=== PATIENT | female | born 1975 | race Caucasian/White ===

== ENCOUNTER 2017-06-08 17:58 | Emergency (ER) | payer OTHER ==
[2017-06-08 18:05] VITALS: BP 100/70; PULSE 99; TEMP 98.2; BMI 28.0
[2017-06-08 21:19] LABS: URINE APPEARANCE SLCLOUDY; URINE BILIRUBIN NEGATIVE (NEGATIVE); URINE BLOOD NEGATIVE (NEGATIVE); URINE COLOR YELLOW; URINE GLUCOSE (UA) NEGATIVE (NEGATIVE); URINE KETONE NEGATIVE (NEGATIVE); URINE LEUK ESTERASE NEGATIVE (NEGATIVE); URINE NITRITE NEGATIVE (NEGATIVE); URINE PROTEIN NEGATIVE (NEGATIVE); URINE UROBILINOGEN NEGATIVE mg/dL (0.2-1.0)
--- NOTE | 2017-06-08 21:48 | PDOC ---
History of Present Illness - General Chief Complaint: Pain Stated Complaint: PREG STOMACH PAIN/17 WKS Time Seen by Provider: 06/08/17 20:47 History Source: Patient Exam Limitations: No Limitations - History of Present Illness Initial Comments: 06/08/17 21:43 41yo Female patient 17 weeks presents to ED c/o right pelvic pain that began this morning. Patient stats symptoms have been on and off all day, she went to work and came to ED for evaluation. Patient denies n/v/d, fever, dysuria , hematuria, back pain, vaginal bleeding, or any other complaints at this time. Timing/Duration: constant Severity: mild Modifying Factors: worse with: cold therapy, eating, immobilization, medication , movement, rest, other Associated Symptoms: denies: denies symptoms, chest pain, cough, diaphoresis, fever/chills, headaches, loss of appetite, malaise, nausea/vomiting, rash, seizure, shortness of breath, syncope, weakness, other Aspirin Received prior to arrival: No: no aspirin today, unknown, 81 mg x 1, 81 mg x 2, 81 mg x 3, 81 mg x 4, 325 mg x 1, provided at home, provided by EMS, provided by ED Past History - Travel Traveled outside of the country in the last 30 days: No Close contact w/someone who was outside of country & ill: No - Past Medical History Allergies/Adverse Reactions: Allergies Allergy/AdvReac Type Severity Reaction Status Date / Time No Known Allergies Allergy Verified 06/08/17 18:01 Home Medications: Ambulatory Orders Vitamins (Sjr) - 1 bot PO DAILY 12/23/14 Asthma: No Cancer: No Cardiac Disorders: No Diabetes: No HTN: No Seizures: No Thyroid Disease: No Other medical history: NONE - Surgical History Appendectomy: Yes - Psycho/Social/Smoking Cessation Hx Anxiety: No Suicidal Ideation: No Smoking History: Never smoked Have you smoked in the past 12 months: No Information on smoking cessation initiated: No Hx Alcohol Use: No Drug/Substance Use Hx: No Substance Use Type: None Hx Substance Use Treatment: No Review of Systems - Review of Systems Able to Perform ROS?: Yes Is the patient limited [place] Citizen proficient: No Constitutional: No: Chills, Fever Respiratory: No: Cough Cardiac (ROS): No: Chest Pain ABD/GI: Yes: Abdominal Distended (17 weeks ), Other (Right pelvic pain) . No: Constipated, Diarrhea, Nausea, Poor Appetite, Poor Fluid Intake, Rectal Bleeding, Vomiting, Abdominal cramping, Tarry Stools : No: Burning, Dysuria, Discharge, Frequency, Flank Pain, Hematuria, Pain, Urgency Musculoskeletal: No: Back Pain Integumentary: No: Bruising, Erythema, Rash, Sweating All Other Systems: Reviewed and Negative *Physical Exam - Vital Signs Last Vital Signs Temp Pulse Resp BP Pulse Ox 98.2 F 99 H 18 100/70 100 06/08/17 18:02 06/08/17 18:02 06/08/17 18:02 06/08/17 18:02 06/08/17 18:02 - Physical Exam General Appearance: Yes: Nourished, Appropriately Dressed. No: Apparent Distress, Mild Distress, Moderate Distress, Severe Distress Respiratory/Chest: positive: Lungs Clear, Normal Breath Sounds. negative: Chest Tender, Respiratory Distress, Accessory Muscle Use, Labored Respiration, Rapid RR, Wheezing Cardiovascular: positive: Regular Rhythm, Regular Rate Gastrointestinal/Abdominal: positive: Normal Bowel Sounds, Tender, Soft, Distended, Tenderness (Right groin region). negative: Guarding, Rebound Musculoskeletal: positive: Normal Inspection. negative: CVA Tenderness, Decreased Range of Motion, Vertebral Tenderness Extremity: positive: Normal Capillary Refill, Normal Inspection, Normal Range of Motion. negative: Pedal Edema, Swelling, Calf Tenderness, Erythema, Inflammation Integumentary: positive: Normal Color, Warm Neurologic: positive: weather analyst II-XII NML intact, Fully Oriented, Alert, Normal Mood/ Affect, Normal Response, Motor Strength 5/5 ED Treatment Course - ADDITIONAL ORDERS Additional order review: Laboratory Results 06/08/17 21:10 Urine Color Yellow Urine Appearance Slcloudy Urine pH 5.0 Urine Protein Negative Urine Glucose (UA) Negative Urine Ketones Negative Urine Blood Negative Urine Nitrite Negative Urine Bilirubin Negative Urine Urobilinogen Negative Ur Leukocyte Esterase Negative - RADIOLOGY Radiology Studies Ordered: Category Date Time Status LIMITED US [US] Stat Ultrasound 06/08/17 20:58 Taken *DC/Admit/Observation/Transfer Diagnosis at time of Disposition: Abdominal pain during in second trimester - Discharge Dispostion Disposition: HOME Condition at time of disposition: Stable Admit: No - Patient Instructions Printed Discharge Instructions: DI for Abdominal Pain -- Early Additional Instructions: FOLLOW UP WITH YOUR OPTIMIZATION CONSULTANT THIS WEEK. CALL TO SCHEDULE APPOINTMENT TO BE SEEN FOR FURTHER EVALUATION. RETURN IF YOU EXPERIENCE VAGINAL BLEEDING, SEVERE BACK PAIN, VOMITING, FEVER, OR ANY OTHER COMPLAINTS AT THIS TIME. Print Language: GREEK
== END 2017-06-08 23:08 | disposition home or self-care (01) ==
LOC: JER 17:58
DX: O26.891 Other specified pregnancy related conditions, first trimester (principal); R10.31 Right lower quadrant pain; Z3A.17 17 weeks gestation of pregnancy
CPT/HCPCS: 76815-TC; 81003; 87086; 99281-25

== ENCOUNTER 2017-11-11 19:05 | Inpatient (IN) | payer OTHER ==
[2017-11-11 20:06] VITALS: BMI 31.4
[2017-11-11] MEDS ORDERED: TUBERCULIN PPD 5 TU/0.1ML SYRINGE (IN PATIENT USE ONLY) ID ONE (20:15)
--- NOTE | 2017-11-11 20:21 | HP ---
Past Medical History - Admission History of Present Illness: 42 yo @ 39 9/7 wks by first trimester ultrasound, EDC 11/18/2017 complicated by: 1. AMA - reassuring NST Declined all genetic testing 2. Failed Essure Patient reports contractions began at 4 PM. She denies leakage of fluid or vaginal bleeding. She reports movement. History Source: Patient Limitations to Obtaining History: No Limitations - Past Medical History Cardiovascular: No: HTN Pulmonary: No: Asthma Gastrointestinal: No: GERD ...: 3 ...Para: 2 ...Term: 2 ...: 0 ...Spon : 0 ...Induced : 0 ...Multiple Gestation: 0 ...LMP: 02/11/17 ... Weeks Gestation by Dates: 39.0 ...EDC by Dates: 11/18/17 ...EDC by Sono: 11/12/17 Heme/Onc: No: Anemia - Past Surgical History Past Surgical History: Yes: Appendectomy Hx Myomectomy: No Hx Transabdominal Cerclage: No - Smoking History Smoking history: Never smoked Have you smoked in the past 12 months: No - Alcohol/Substance Use Hx Alcohol Use: No History of Substance Use: reports: None - Social History Usual Living Arrangement: Yes: With Spouse History of Recent Travel: No Home Medications - Allergies Allergies/Adverse Reactions: Allergies Allergy/AdvReac Type Severity Reaction Status Date / Time No Known Allergies Allergy Verified 10/28/17 16:59 - Home Medications Home Medications: Ambulatory Orders Vitamins (Sjr) - 1 bot PO DAILY 12/23/14 Family Disease History - Family Disease History Family History: Denies Review of Systems - Review of Systems Constitutional: reports: No Symptoms HENT: reports: No Symptoms Neck: reports: No Symptoms Cardiovascular: reports: No Symptoms Respiratory: reports: No Symptoms Genitourinary: reports: No Symptoms Musculoskeletal: reports: No Symptoms Integumentary: reports: No Symptoms Neurological: reports: No Symptoms Endocrine: reports: No Symptoms Hematology/Lymphatic: reports: No Symptoms Physical Exam - Maternity Vital Signs: Vital Signs Temperature 98.5 F 11/11/17 19:25 Pulse Rate 96 H 11/11/17 19:25 Respiratory Rate 20 11/11/17 19:25 Blood Pressure 123/77 11/11/17 19:25 O2 Sat by Pulse Oximetry (%) Constitutional: Yes: Well Nourished, No Distress, Calm Neck: Yes: Supple Cardiovascular: Yes: Regular Rate and Rhythm Lungs: Clear to auscultation - Abdominal Exam/OB Fundal Height: 40 Number of Fetuses: Single Contractions: Yes Regularity: Regular Intensity: Mod/Strong Monitor Mode: External Heart Rate (range): 150 Category: I Accelerations: Non-Uniform Decelerations: None - Vaginal Exam/OB Vaginal Bleediing: No Dilatation (cm): 8 Amniotic Membrane Status: Intact - Physical Exam Extremities: Yes: WNL Integumentary: Yes: WNL ...Motor Strength: WNL Psychiatric: Yes: Alert, Oriented - Labs Lab Results: PNL: O positive; antibody negative; RPR NR; HBS Ag negative; Rubella Immune, GBS negative; HIV negative Hemorrhage Risk Assessment - Risk Factors Medium Risk Factors: Yes: None High Risk Factors: Yes: None Risk Score: 1 Risk Level: Medium Risk Assessment/Plan 42 yo @ 39 6/7 wks, active labor 1. Admit to L&D 2. Consents reviewed and signed 3. Routine labs collected and sent 4. GBS negative 5. Declines offer for pain control 6. Will proceed with expectant management
[2017-11-11 20:34] LABS: BASO % 0.6 % (0-2.0); EOS % 0.4 % (0-4.5); HEMATOCRIT 36.8 % (32.4-45.2); HEMOGLOBIN 12.5 GM/dL (10.7-15.3); LYMPH % 17.3 % (8-40); MCH 30.3 pg (25.7-33.7); MCHC 33.9 g/dl (32.0-36.0); MEAN CELL VOLUME 89.4 fl (80-96); MEAN PLT VOLUME 9.2 fl (7.5-11.1); NEUT % 74.7 % (42.8-82.8); PLATELET COUNT 244 K/MM3 (134-434); RBC 4.12 M/mm3 (3.60-5.2); RDW 14.6 % (11.6-15.6); WHITE BLOOD COUNT 8.4 K/mm3 (4.0-10.0)
[2017-11-11 21:02] LABS: ANION GAP 11 (8-16); BLOOD UREA NITROGEN 8 mg/dL (7-18); CALCIUM 7.9 mg/dL (8.5-10.1); CHLORIDE 105 mmol/L (98-107); CO2 23 mmol/L (21-32); CREATININE 0.5 mg/dL (0.55-1.02); GLUCOSE,RANDOM 141 mg/dL (74-106); POTASSIUM 3.7 mmol/L (3.5-5.1); SODIUM 139 mmol/L (136-145)
[2017-11-11 21:08] LABS: INR 0.93 (0.82-1.09); PROTHROMBIN TIME (PATIENT) 10.5 SEC (9.98-11.88)
[2017-11-11 21:11] LABS: ACTIVATED PTT 25.8 SECONDS (26.9-34.4)
[2017-11-11] MEDS ORDERED: DEXTROSE 5%-LACTATED RINGERS 500 ML IV ONE (21:14)
[2017-11-11] MEDS ORDERED: OXYTOCIN 15 UNITS/ LR 250 ML 250 ML IVPB SCH (22:00)
[2017-11-11] MEDS ORDERED: OXYTOCIN 30 UNITS in 0.9% NS 30 UNIT/500 ML INFUS.BAG IVPB ONE (22:01)
[2017-11-11] MEDS ORDERED: DEXTROSE 5%-LACTATED RINGERS 1,000 ML IV SCH (22:15)
[2017-11-11] MEDS ORDERED: OXYTOCIN 30 UNITS in 0.9% NS 30 UNIT/500 ML INFUS.BAG IVPB SCH (22:15)
[2017-11-11] MEDS ORDERED: OXYTOCIN 20 UNITS in 0.9% NS 20 UNIT/1,000 ML INFUS.BAG IV ONE (23:00)
--- NOTE | 2017-11-11 23:37 | PN ---
Delivery - Delivery Vaginal Delivery: No Problems Type of Anesthesia: None Episiotomy/Laceration: None EBL (cc): 300 Delivery, Single - Stages of Labor Date 1st Stage Initiatied: 11/11/17 Time 1st Stage Initiated: 16:00 Date 2nd Stage Initiated: 11/11/17 Time 2nd Stage Initiated: 23:00 Date of Delivery: 11/11/17 Time of Delivery: 23:20 Date Placenta Delivered: 11/11/17 Time Placenta Delivered: 23:30 Placenta: Yes: Spontaneous - Condition of Personnel Records Clerk/Hose Mender Present: No Gender: Male Position: Left, OA Total Hours ROM (Hrs/Mins): 2 hours 20 minutes - 1 Minute Total Score: 9 5 Minutes Total Score: 9 - Feeding Plan Initial Plan: Exclusive throughout hospitalization Remarks - Remarks Remarks: Patient progressed to fully dilated and at 2320 via delivered a viable Male infant in ELIEZER position, APGARs 9,9. Weight and length unknown at this time. Head delivered spontaneously, nuchal cord noted and reduced, shoulders and body followed without difficulty. with spontaneous cry and placed on mother's abdomen. Nose and mouth was bulb suctioned. Cord was clamped and cut. Perineum and vagina examined, No lacerations noted. Placenta was delivered spontaneously and intact. 20 units of pitocin in 1 L IVF was given. All counts correct x 2. Mother and stable in LDR. EBL 300cc.
[2017-11-11] MEDS ORDERED: ACETAMINOPHEN 325 MG TABLET (FP) PO PRN (23:38)
[2017-11-11] MEDS ORDERED: BISACODYL 10 MG SUPP.RECT RC PRN (23:38)
[2017-11-11] MEDS ORDERED: BENZOCAINE 20% 57 GM BOTTLE TP PRN (23:38)
[2017-11-11] MEDS ORDERED: oxyCODONE HCL 5 MG TABLET PO PRN (23:38)
[2017-11-11] MEDS ORDERED: BENZOCAINE 28 GM HEMORRHOIDAL OINTMENT TP PRN (23:38)
[2017-11-11] MEDS ORDERED: WITCH HAZEL 50% (TUCKS) 40 PAD/JAR PAD TP PRN (23:38)
[2017-11-11] MEDS ORDERED: OXYTOCIN 20 UNITS in 0.9% NS 20 UNIT/1,000 ML INFUS.BAG IV SCH (23:45)
[2017-11-12] MEDS: METHYLERGONOVINE MALEATE 0.2 MG/1 ML AMP IM PRN ×3 (00:35→10:49)
[2017-11-12] MEDS ORDERED: METHYLERGONOVINE MALEATE 0.2 MG/1 ML AMP IM ONE (01:10)
[2017-11-12] MEDS ORDERED: OXYTOCIN 10 UNITS/ML VIAL IV ONE (01:10)
[2017-11-12 01:38] LABS: HEMOGLOBIN 12.2 GM/dL (10.7-15.3); MCH 29.5 pg (25.7-33.7); MCHC 33.1 g/dl (32.0-36.0); MEAN CELL VOLUME 89.2 fl (80-96); MEAN PLT VOLUME 9.4 fl (7.5-11.1); RBC 4.15 M/mm3 (3.60-5.2); RDW 14.4 % (11.6-15.6); WHITE BLOOD COUNT 20.5 K/mm3 (4.0-10.0)
[2017-11-12] MEDS ORDERED: OXYTOCIN 10 UNITS/ML VIAL ONE (01:41)
[2017-11-12 02:51] LABS: PLATELET COUNT 178 K/MM3 (134-434)
[2017-11-12] MEDS: IBUPROFEN 600 MG TABLET (FP) PO PRN ×4 (06:50→22:25)
[2017-11-12 07:35] LABS: BASO % 0.6 % (0-2.0); EOS % 0.1 % (0-4.5); HEMATOCRIT 36.6 % (32.4-45.2); HEMOGLOBIN 11.9 GM/dL (10.7-15.3); LYMPH % 11.6 % (8-40); MCH 29.1 pg (25.7-33.7); MCHC 32.6 g/dl (32.0-36.0); MEAN CELL VOLUME 89.4 fl (80-96); MEAN PLT VOLUME 8.5 fl (7.5-11.1); MONO % 7.1 % (3.8-10.2); NEUT % 80.6 % (42.8-82.8); PLATELET COUNT 210 K/MM3 (134-434); RDW 14.7 % (11.6-15.6); WHITE BLOOD COUNT 16.6 K/mm3 (4.0-10.0)
--- NOTE | 2017-11-12 10:58 | PN ---
Post Progress Note - Subjective Subjective: Patient without acute complaints. Reports tolerating oral intake without nausea or vomiting. Ambulating without dizziness. Denies fevers or chills. Pain well controlled with oral pain medication. without difficulty. Passing flatus. Post Day: 1 Type of Delivery: Vital Signs: Vital Signs Temperature 98.8 F 11/12/17 08:48 Pulse Rate 79 11/12/17 08:48 Respiratory Rate 20 11/12/17 08:48 Blood Pressure 124/69 11/12/17 08:48 O2 Sat by Pulse Oximetry (%) 98 11/12/17 02:00 Breast Exam: Yes: Engorged Uterus: Yes: Fundus Firm, Fundus below umbilicus Abdomen/GI: Yes: Abdomen soft, Passing flatus, Tolerating PO. No: Tender Lochia: Yes: Serosa Lochia, amount: Moderate Extremities: Yes: Calves non-tender, Edema (trace) Perineum: Yes: Intact Activity: Ambulating - Labs Labs: CBC WBC 16.6 K/mm3 (4.0-10.0) H 11/12/17 07:10 RBC 4.10 M/mm3 (3.60-5.2) 11/12/17 07:10 Hgb 11.9 GM/dL (10.7-15.3) 11/12/17 07:10 Hct 36.6 % (32.4-45.2) 11/12/17 07:10 MCV 89.4 fl (80-96) 11/12/17 07:10 MCH 29.1 pg (25.7-33.7) 11/12/17 07:10 MCHC 32.6 g/dl (32.0-36.0) 11/12/17 07:10 RDW 14.7 % (11.6-15.6) 11/12/17 07:10 Plt Count 210 K/MM3 (134-434) 11/12/17 07:10 MPV 8.5 fl (7.5-11.1) 11/12/17 07:10 Neutrophils % 80.6 % (42.8-82.8) 11/12/17 07:10 Lymphocytes % 11.6 % (8-40) D 11/12/17 07:10 Monocytes % 7.1 % (3.8-10.2) 11/12/17 07:10 Eosinophils % 0.1 % (0-4.5) 11/12/17 07:10 Basophils % 0.6 % (0-2.0) 11/12/17 07:10 Manual Slide Review 11/12/17 01:33 Platelet Comment No clotting detected 11/12/17 01:33 Assessment/Plan 40 PPD # 1 s/p , afebrile, vital signs stable, complicated by uterine atony s/p methergine 1. CBC stable - moderate lochia Plan to continue methergine Will also start antibiotics secondary to manual exam 2. Encouraged 3. Rh positive status, no rhogam indicated. 4. Encourage ambulation and incentive spirometer use 5. Continue oral pain medication 6. Discharge planning pending stable bleeding
[2017-11-12] MEDS ORDERED: CEFTRIAXONE 1 G/50 ML PREMIX 50 ML IVPB ONE (11:30)
[2017-11-12] MEDS ORDERED: SENNOSIDES/DOCUSATE COMBO (SENNA PLUS) TABLET (UD) PO PRN (22:00)
--- NOTE | 2017-11-13 07:21 | DS ---
Physical Exam-POULTRY VACCINATOR Vital Signs: Vital Signs Temperature 98.6 F 11/12/17 22:00 Pulse Rate 99 H 11/12/17 22:00 Respiratory Rate 18 11/12/17 22:00 Blood Pressure 114/65 11/12/17 22:00 O2 Sat by Pulse Oximetry (%) 98 11/12/17 02:00 Constitutional: Yes: Well Nourished, No Distress, Calm Eyes: Yes: WNL, Conjunctiva Clear, EOM Intact HENT: Yes: WNL, Atraumatic, Normocephalic Neck: Yes: WNL, Supple, Trachea Midline Cardiovascular: Yes: WNL, Regular Rate and Rhythm Respiratory: Yes: WNL, Regular, CTA Bilaterally Gastrointestinal: Yes: WNL ...Rectal Exam: Yes: WNL Renal/: Yes: WNL ....Post : Yes: Uterus firm, Uterus non-tender, Slight lochia rubra Breast(s): Yes: WNL Musculoskeletal: Yes: WNL Extremities: Yes: WNL Edema: No Integumentary: Yes: WNL Neurological: Yes: WNL, Alert, Oriented ...Motor Strength: WNL Psychiatric: Yes: WNL, Alert, Oriented Labs: CBC, BMP 11/12/17 07:10 11/11/17 19:30 Delivery - Delivery Vaginal Delivery: No Problems, Spontaneous Type of Anesthesia: None Episiotomy/Laceration: None EBL (cc): 300 Delivery, Single - Stages of Labor Date 1st Stage Initiatied: 11/11/17 Time 1st Stage Initiated: 16:00 Date 2nd Stage Initiated: 11/11/17 Time 2nd Stage Initiated: 23:00 Date of Delivery: 11/11/17 Time of Delivery: 23:20 Time Placenta Delivered: 23:30 Placenta: Yes: Spontaneous - Condition of Infant Labor Relations Teacher/Hardening Machine Operator Helper Present: No Infant Gender: Male Weight: 8 lb 13 oz Position: Left, OA Total Hours ROM (Hrs/Mins): 2 hours 20 minutes - 1 Minute Total Score: 9 5 Minutes Total Score: 9 - [place] Feeding Plan Initial Plan: Exclusive throughout hospitalization Discharge Summary Reason For Visit: LABOR Current Active Problems AMA (advanced maternal age) multigravida 35+ (Acute) Vaginal delivery (Acute) Procedures: Principal: Hospital Course: uteine atony Condition: Good - Instructions Diet, Activity, Other Instructions: regular diet, no intercourse, follow up office 4 to 6 weeks, if pain, heavy bleeding, fever call MD Referrals: Nura Claros SUPER [Medical [employer] D [employer]] - Disposition: HOME - Home Medications Comprehensive Discharge Medication List: Ambulatory Orders Vitamins (Sjr) - 1 tab PO DAILY 12/23/14 Ibuprofen [Motrin -] 600 mg PO QID #28 tablet 11/12/17
[2017-11-13] MEDS: IBUPROFEN 600 MG TABLET (FP) PO PRN (07:57)
[2017-11-13 08:13] VITALS: BP 126/79; PULSE 94; TEMP 97.8
== END 2017-11-13 12:20 | disposition home or self-care (01) | DRG 560 ==
LOC: JDEL 19:05 → JLDR 19:25 → J3W 11-12 02:22
PROVIDERS: ADMIT Obstetrics & Gynecology; ATTEND Obstetrics & Gynecology
PROC: 10E0XZZ Delivery of Products of Conception, External Approach (ICD-10-PCS; principal; 2017-11-11)
DX: O36.0930 Maternal care for other rhesus isoimmunization, third trimester, not applicable or unspecified (principal); O72.1 Other immediate postpartum hemorrhage; Z3A.39 39 weeks gestation of pregnancy; Z37.0 Single live birth
CPT/HCPCS: 36415; 59409; 80048; 85025; 85027; 85610; 85730; 86593; 86850; 86900; 86901

== ENCOUNTER 2019-10-24 05:14 | Day surgery (SDC) | payer OTHER ==
[2019-10-20 10:48] VITALS: BMI 26.6
[~2019-10-24 05:14] MED LIST: BUPIVACAINE HCL/PF 0.5% (5 MG/ML) 30 ML VIAL IJ ONE
[2019-10-24] MEDS ORDERED: IBUPROFEN 600 MG TABLET (FP) PO PRN (11:10)
[2019-10-24] MEDS ORDERED: ACETAMINOPHEN 325 MG TABLET (FP) PO PRN (11:10)
[2019-10-24] MEDS ORDERED: fentaNYL CITRATE 250 MCG/5 ML VIAL ONE (11:13)
[2019-10-24] MEDS ORDERED: PROPOFOL 20 ML ONE (11:14)
[2019-10-24] MEDS ORDERED: DEXAMETHASONE SOD PHOSPHATE 4 MG/1 ML VIAL ONE (11:14)
[2019-10-24] MEDS ORDERED: ROCURONIUM BROMIDE 50 MG/5 ML SYRINGE ONE (11:14)
[2019-10-24] MEDS ORDERED: LIDOCAINE HCL/PF 2% SDV 5ML VIAL ONE (11:14)
[2019-10-24] MEDS ORDERED: MIDAZOLAM HCL 2 MG/2 ML SINGLE DOSE VIAL ONE (11:14)
[2019-10-24] MEDS ORDERED: LACTATED RINGERS SOLUTION 1,000 ML IV SCH ×2 (11:15→11:45)
--- NOTE | 2019-10-24 11:16 | HP ---
Past Medical History - Admission History of Present Illness: 44 yo with failed Essure procedure, desiring permanent sterilization, for laparoscopic bilateral salpingectomy History Source: Patient Limitations to Obtaining History: No Limitations - Past Medical History Cardiovascular: No: HTN - Past Surgical History Past Surgical History: Yes: Appendectomy - Smoking History Smoking history: Never smoked Have you smoked in the past 12 months: No - Alcohol/Substance Use Hx Alcohol Use: No History of Substance Use: reports: None - Social History History of Recent Travel: No Home Medications - Allergies Allergies/Adverse Reactions: Allergies Allergy/AdvReac Type Severity Reaction Status Date / Time No Known Allergies Allergy Verified 10/28/17 16:59 - Home Medications Home Medications: Ambulatory Orders NK [No Known Home Medication] 10/20/19 Physical Exam - Maternity Vital Signs: Vital Signs Temperature 97.8 F 10/24/19 09:47 Pulse Rate 78 10/24/19 09:47 Respiratory Rate 20 10/24/19 09:47 Blood Pressure 105/67 10/24/19 09:47 O2 Sat by Pulse Oximetry (%) 98 10/24/19 09:47
--- NOTE | 2019-10-24 11:20 | HP ---
Admitting History and Physical - Admission History of Present Illness: 44 yo with failed Essure procedure, desiring permanent sterilization, for laparoscopic bilateral salpingectomy History Source: Patient Limitations to Obtaining History: No Limitations - Past Medical History Cardiovascular: No: HTN Pulmonary: No: Asthma ...LMP: 10/09/19 - Past Surgical History Past Surgical History: Yes: Appendectomy Additional Past Surgical History: Essure 03/2015 - no confirmatory HSG - Smoking History Smoking history: Never smoked Have you smoked in the past 12 months: No - Alcohol/Substance Use Hx Alcohol Use: No History of Substance Use: reports: None - Social History History of Recent Travel: No Home Medications - Allergies Allergies/Adverse Reactions: Allergies Allergy/AdvReac Type Severity Reaction Status Date / Time No Known Allergies Allergy Verified 10/28/17 16:59 - Home Medications Home Medications: Ambulatory Orders NK [No Known Home Medication] 10/20/19 Family Medical History Family History: Denies Review of Systems - Review of Systems Constitutional: reports: No Symptoms Cardiovascular: reports: No Symptoms Respiratory: reports: No Symptoms Gastrointestinal: reports: No Symptoms Genitourinary: reports: No Symptoms Musculoskeletal: reports: No Symptoms Neurological: reports: No Symptoms Endocrine: reports: No Symptoms Physical Examination Vital Signs: Vital Signs Temperature 97.8 F 10/24/19 09:47 Pulse Rate 78 10/24/19 09:47 Respiratory Rate 20 10/24/19 09:47 Blood Pressure 105/67 10/24/19 09:47 O2 Sat by Pulse Oximetry (%) 98 10/24/19 09:47 Constitutional: Yes: Well Nourished, No Distress, Calm Cardiovascular: Yes: Regular Rate and Rhythm Respiratory: Yes: Regular, CTA Bilaterally Gastrointestinal: Yes: Normal Bowel Sounds, Soft Edema: No Psychiatric: Yes: Alert, Oriented Assessment/Plan 44 yo s/p essure, for LS bilateral salpingectomy, Removal of IUD 1. Consents reviewed and signed, Medicaid consent form signed 09/20/2019 2. Preop labs reviewed 3. Ancef environmental health safety engineer to OR 4. SCDs for DVT prophylaxis 5. Will proceed to OR
[2019-10-24] MEDS ORDERED: ONDANSETRON 4 MG/2 ML VIAL IVPUSH PRN (11:42)
[2019-10-24] MEDS ORDERED: oxyCODONE HCL 5 MG TABLET PO PRN ×2 (11:42)
[2019-10-24] MEDS ORDERED: ACETAMINOPHEN INJECTION 100 ML IVPB ONE (11:44)
[2019-10-24] MEDS ORDERED: ceFAZolin SODIUM 1 GM VIAL IVPB ONE (12:00)
[2019-10-24] MEDS ORDERED: KETOROLAC TROMETHAMINE 30 MG/1 ML VIAL ONE (12:12)
[2019-10-24] MEDS ORDERED: NEOSTIGMINE METHYLSULFATE 0.5 MG/ML - 10 ML MDV ONE (12:12)
[2019-10-24] MEDS ORDERED: ceFAZolin SODIUM 1 GM VIAL ONE (12:12)
[2019-10-24] MEDS ORDERED: GLYCOPYRROLATE 0.2 MG/1 ML VIAL ONE (12:13)
[2019-10-24] MEDS ORDERED: BUPIVACAINE HCL/PF 0.5% (5 MG/ML) 30 ML VIAL IJ ONE (12:30)
--- NOTE | 2019-10-24 12:46 | OP ---
Operative Note - Note: Operative Date: 10/24/19 Pre-Operative Diagnosis: failed essure, desiring permanent sterilization Operation: laparoscopic bilateral sapingectomy, essure removal, IUD removal Findings: normal appearing tubes and ovaries, bilateral expelled essures, IUD intact Post-Operative Diagnosis: Same as Pre-op Surgeon: Shirley Claros Flatware Maker: Joshua Fuentes Anesthesiologist/SECURITY NURSE: Lauren Davis Anesthesia: General Specimens Removed: 1. Left fallopian tube; 2. Right fallopian tube; 3. left essure; 4. portion of right essure Estimated Blood Loss (mls): 5 Operative Report Dictated: Yes
[2019-10-24 14:24] VITALS: TEMP 97.8
[2019-10-24 16:47] VITALS: BP 101/54; PULSE 65
--- NOTE | 2019-10-25 11:47 | OP ---
DATE OF OPERATION: 10/24/2019 ATTENDING SURGEON: Becky Barreto MD PREOPERATIVE DIAGNOSIS: Failed Essure, desiring permanent sterilization. POSTOPERATIVE DIAGNOSIS: Failed Essure, desiring permanent sterilization. SURGERY: Laparoscopic bilateral salpingectomy, Essure removal, and IUD removal. FINDINGS: Normal-appearing tubes and ovaries. Bilateral expelled Essure. IUD intact. SURGEON: Becky Barreto MD ALLERGIST: Joshua Fuentes MD ANESTHESIOLOGIST: Lauren Davis MD ANESTHESIA: General. SPECIMENS REMOVED: 1. Left fallopian tube. 2. Right fallopian tube. 3. Left Essure. 4. Portion of right Essure. ESTIMATED BLOOD LOSS: 5 mL. INDICATIONS: Patient is a 44-year-old 2, para 2 with a history of failed Essure desiring permanent sterilization. She was counseled regarding risks, benefits, alternatives, and complications of procedure including infection, bleeding, damage to surrounding organs. She expressed understanding and was brought to the operating room. DESCRIPTION OF PROCEDURE: When anesthesia was found to be adequate, patient was prepped and draped in normal sterile fashion, placed in dorsal lithotomy position using Librado stirrups. The weighted speculum was placed in the patient's vagina. Anterior lip of the cervix was grasped using a ring forceps, and a HUMI uterine manipulator was placed in the uterus. A Mcgee was placed to gravity. Attention was brought to the abdomen. A 5-mm incision was made with a knife, and the Veress needle using a waterdrop test used to confirm intraperitoneal placement. The abdomen was insufflated to approximately 15 mmHg of carbon dioxide. A 5-mm trocar was placed in the umbilical incision under direct visualization using support. Attention was brought to the right lower quadrant where a 5-mm trocar was placed under direct visualization and the left lower quadrant where a 5-mm trocar was placed under direct visualization. The patient was placed in Trendelenburg. The uterus was examined. Bilateral Essure were noted to be expelled from the patient's cornua. The left Essure was removed in entirety. A portion of the right Essure was then removed from the cornua. The right fallopian tube was followed to fimbriated end, and this was excised using LigaSure. Good hemostasis was noted. The left fallopian tube was followed to its fimbriated end, and this was excised using a LigaSure. Good hemostasis was noted. All instruments were removed from the patient's abdomen. The pneumoperitoneum was released. Skin was closed using 4-0 Biosyn in interrupted fashion. All instruments were removed from the patient's vagina. Patient was awoken from anesthesia and brought to recovery room in stable condition. BECKY BARRETO M.D. [id number]
--- NOTE | 2019-10-26 15:09 | PATH ---
Surgical Pathology Report Patient Name: SANDEEP OCAMPO [facility]. Rec. #: [id number] /Age/Gender: 1975 (Age: 44) / F Account: [id number] Location: [facility] SURGICAL Taken: 10/24/2019 Received: 10/24/2019 Reported: 10/26/2019 Physicians: Shirley Claros Specimen(s) Received A: LEFT FALLOPIAN TUBE B: RIGHT FALLOPIAN TUBE C: ESSURE COIL, LEFT D: PORTION OF ESSURE COIL, RIGHT Clinical History Encounter for sterilization Final Diagnosis A. FALLOPIAN TUBE, LEFT, LAPAROSCOPIC SALPINGECTOMY: FALLOPIAN TUBE WITH ENDOSALPINGOSIS (INCLUDING FIMBRIATED END AND FULL LUMINAL PORTION). B. FALLOPIAN TUBE, RIGHT, LAPAROSCOPIC SALPINGECTOMY: FALLOPIAN TUBE WITH ENDOSALPINGOSIS (INCLUDING FIMBRIATED END AND FULL LUMINAL PORTION). C. ESSURE COIL, LEFT, REMOVAL: FOREIGN BODY MATERIAL. MACROSCOPIC DIAGNOSIS. D. PORTION OF ESSURE COIL, RIGHT, REMOVAL: FOREIGN BODY MATERIAL. MACROSCOPIC DIAGNOSIS. Electronically Signed Tisha Calvo M.D. Gross Description A. Received in formalin labeled "left fallopian tube," is a 5.5 cm in length melgar-thompson, fimbriated fallopian tube. The outer surface is smooth. Sectioning reveals an unremarkable lumen. Schedule Maker sections are submitted in 2 cassettes as follows: 1-fimbria; 2-cross sections of fallopian tube. B. Received in formalin labeled "right fallopian tube," is a 6 cm in length melgar-thompson portion of fallopian tube. The fimbriae are separately received within the same container. The outer surface of the fallopian tube is smooth. Sectioning reveals an unremarkable lumen. Schedule Maker sections are submitted in 2 cassettes as follows: 1-fimbria; 2-cross sections of fallopian tube. C. Received fresh labeled "left Essure coil," is a 3 cm in length gatica metallic, coiled foreign body with attached suture material. No soft tissue is present. No sections are submitted, gross only. D. Received fresh labeled "portion of right Essure coil," is a 0.8 cm in length gatica metallic, coiled foreign body. No soft tissue is present. No sections are submitted, gross only. DL10/25/2019 saudi10/25/2019
== END 2019-10-24 16:47 | disposition home or self-care (01) ==
LOC: JASU-SURG 05:14
PROVIDERS: ATTEND Obstetrics & Gynecology
PROC: 0U574ZZ Destruction of Bilateral Fallopian Tubes, Percutaneous Endoscopic Approach (ICD-10-PCS; principal; 2019-10-24 11:00)
PROC: 0UPD4HZ Removal of Contraceptive Device from Uterus and Cervix, Percutaneous Endoscopic Approach (ICD-10-PCS; 2019-10-24 11:00)
DX: Z30.2 Encounter for sterilization (principal); Z30.432 Encounter for removal of intrauterine contraceptive device
CPT/HCPCS: 84703; 88300-TC; 88302-TC; 94760; J0131

== ENCOUNTER 2023-11-10 10:02 | Emergency (ER) | payer OTHER ==
[2023-11-10 10:08] VITALS: BP 113/70; PULSE 74; RESP 20; TEMP 98; BMI 29.0
[2023-11-10] MEDS ORDERED: ALBUTEROL SO4 2.5/IPRATROPIUM 0.5 INH SOL 3 ML VIAL.NEB. NEB ONE ×4 (11:16→11:33)
[2023-11-10] MEDS ORDERED: DEXAMETHASONE 0.5 MG TABLET PO ONE (11:30)
[2023-11-10] MEDS ORDERED: DEXAMETHASONE 4 MG TABLET (FP) ONE (11:32)
== END 2023-11-10 13:56 | disposition home or self-care (01) ==
LOC: JER 10:02
PROC: 3E0F7GC Introduction of Other Therapeutic Substance into Respiratory Tract, Via Natural or Artificial Opening (ICD-10-PCS; principal; 2023-11-10)
DX: J45.909 Unspecified asthma, uncomplicated (principal); R06.02 Shortness of breath; R42 Dizziness and giddiness; R07.89 Other chest pain
CPT/HCPCS: 71046-TC-FY; 93005; 93010; 94640; 99284-25

== ENCOUNTER 2025-01-31 06:19 | Emergency (ER) | payer OTHER ==
[2025-01-31 06:28] VITALS: BP 121/65; PULSE 103; RESP 18; TEMP 99.3; BMI 29.8
[2025-01-31] MEDS ORDERED: ACETAMINOPHEN 500 MG TABLET (FP) ONE (06:40)
[2025-01-31] MEDS: ACETAMINOPHEN 500 MG TABLET (FP) PO ONE (06:40)
== END 2025-01-31 06:54 | disposition home or self-care (01) ==
LOC: JER 06:19
DX: U07.1 COVID-19 (principal); R50.9 Fever, unspecified; M79.10 Myalgia, unspecified site; R09.81 Nasal congestion
CPT/HCPCS: 0241U-QW; 99283-25